=== PATIENT | female | born 1955 | race Caucasian/White ===

== ENCOUNTER → 2016-10-10 | Outpatient (CLI) | payer OTHER ==
--- NOTE | 2016-10-10 11:46 | DIAGNOSTIC IMAGING REPORT ---
LEFT KNEE 2 VIEWS HISTORY: Fall. Left knee pain. COMPARISON: None. FINDINGS: There is no fracture or dislocation. Mild anterior soft tissue swelling. Moderate knee effusion. Indistinctness and thickening at the quadriceps tendon with mild inferior displacement of the patella. The bones are osteopenic. No radiopaque foreign bodies. IMPRESSION: 1. No acute fractures within the left knee. 2. Thickening and indistinctness of the quadriceps tendon with patella baja. This is concerning for quadriceps tendon injury/tear. 3. Moderate knee effusion. Electronically signed by: Kole Jmienez M.D. 10/10/2016 11:45 AM Dictated Date/Time: 10/10/2016 11:43 AM
== END | disposition home or self-care (01) ==
LOC: C.RAD1850 11:29
PROVIDERS: ATTEND Family Medicine
DX: M25.562 Pain in left knee (principal)